=== PATIENT | female | born 1980 | race Caucasian/White ===

== ENCOUNTER 2016-06-28 17:43 | Emergency (ER) | payer SELFPAY ==
[2016-06-28] MEDS ORDERED: Rocephin 1000 MG INJ IM ONE (18:44)
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
[2016-06-28] MEDS ORDERED: Rocephin 1000 MG INJ ONE (19:08)
[2016-06-28] MEDS ORDERED: XYLOCAINE 1% HCL 20 ML MDV ONE (19:08)
[2016-06-28 19:38] VITALS: BP 105/72; PULSE 83; O2SAT 100
== END 2016-06-28 19:25 | disposition home or self-care (01) ==
LOC: ED 17:43
DX: K08.89 Other specified disorders of teeth and supporting structures (principal); K04.7 Periapical abscess without sinus; K02.9 Dental caries, unspecified
CPT/HCPCS: 96372; 99282; 99284; J0696

== ENCOUNTER 2017-05-12 08:30 | Emergency (ER) | payer OTHER ==
--- NOTE | 2017-05-12 09:09 | ERPHSYRPT ---
- History of Present Illness Time Seen by Provider: 05/12/17 08:54 Source: patient, family Patient Subjective Stated Complaint: PT REPORTS REDNESS DRAIANGE ET MATTING OF LEFT EYE BEGINNING CHONG 1 WK AGO WORSENING WITH TIME-DENIES INJURY-DENIES PAIN Triage Nursing Assessment: PT PINK WARM DRY ANXIOUS-REDNESS NOTED TO LEFT EYE- PT DNIES VISUAL CHANGES Physician History: CC: left eye drainage Hx: 36 y/o patient of Dr Corbett with one week left eye redness now with copious green drainage from the left eye. No FB or injury. No blurred vision. Recent cold symptoms. No glasses or contact lenses. Drng is worse so came to ER. Location: left eye Severity: moderate Allergies/Adverse Reactions: nabumetone [From Relafen] Allergy (Mild, Verified 05/12/17 08:51) CAUSES BLURED VISION PER PATIENT Hx Tetanus, Diphtheria Vaccination/Date Given: Yes (2014) Hx Influenza Vaccination/Date Given: No Hx Pneumococcal Vaccination/Date Given: No Immunizations Up to Date: Yes - Review of Systems Constitutional: No Fever, No Chills Eyes: Discharge, Eye Redness, No Eye Pain, No Vision Changes Ears, Nose, & Throat: Nose Congestion - Past Medical History Pertinent Past Medical History: Yes Neurological History: No Pertinent History ENT History: No Pertinent History Cardiac History: No Pertinent History Respiratory History: No Pertinent History Endocrine Medical History: No Pertinent History Musculoskeletal History: No Pertinent History GI Medical History: No Pertinent History History: No Pertinent History Psycho-Social History: Anxiety, Bipolar, Depression Female Reproductive Disorders: No Pertinent History - Past Surgical History Past Surgical History: Yes Neuro Surgical History: No Pertinent History Cardiac: No Pertinent History Respiratory: No Pertinent History Gastrointestinal: Cholecystectomy Musculoskeletal: Orthopedic Surgery Female Surgical History: Tubal Ligation Other Surgical History: ANKLE TENDON RECONSTRUCTION AT AGE 14. PY CYST - Social History Smoking Status: Current every day smoker How long have you smoked: 15 YEARS Exposure to second hand smoke: Yes Drug Use: none Patient Lives Alone: No - Female History Hx Last Menstrual Period: 2 WKS AGO Hx Now: No - Nursing Vital Signs Nursing Vital Signs: Initial Vital Signs Temperature 98.9 F 05/12/17 08:44 Pulse Rate 85 05/12/17 08:44 Respiratory Rate 20 05/12/17 08:44 Blood Pressure 121/84 05/12/17 08:44 O2 Sat by Pulse Oximetry 96 01/07/18 08:44 Pain Scale Pain Intensity 0 - Physical Exam General Appearance: alert Vision Acuity Degree Evaluation Phase: Uncorrected Vision Acuity Right Eye: 20/30 Vision Acuity Left Eye: 20/30 Eye Exam: left eye: conjunctival inflammation, exudate, bilateral eye: PERRL, EOMI Ears, Nose, Throat Exam: normal ENT inspection, moist mucous membranes Neck Exam: normal inspection, non-tender, supple Respiratory Exam: normal breath sounds Cardiovascular Exam: regular rate/rhythm Skin Exam: normal color, warm, dry SpO2 Interpretation: normal SpO2: 96 Oxygen Delivery: Room Air Comments: left eye has conjunctival injection and mild drng. EOMI. No FB noted. No lid edema or periorbital cellulitis. - Course Nursing assessment & vital signs reviewed: Yes - Progress Progress Note: 05/12/17 09:03 Instr given. She plans to follow up tomorrow at [facility]. Counseled pt/family regarding: diagnosis, need for follow-up - Departure Time of Disposition: 09:03 Departure Disposition: Home Clinical Impression: Conjunctivitis, left eye Qualifiers: Conjunctivitis type: acute Acute conjunctivitis type: bacterial Qualified Code( s): H10.32 - Unspecified acute conjunctivitis, left eye Condition: Stable Critical Care Time: No Referrals: TERE CORBETT MD [Primary Care Provider] - Instructions: Conjunctivitis Additional Instructions: EYE PROBLEM 1. If a patch is applied, your vision will be impaired. Do not drive. 2. The more you rest your good eye, the better your affected eye will feel. 3. Use any eye drops or ointments as prescribed by the emergency room physician. 4. See your family physician or return to the emergency department for any increasing pain or decreased vision. 5. Use good hygiene and keep eye clean. 6. Do not rub the eye. Rx cipro eye drops to [facility]. Followup tomorrow at [facility]. Warm compresses to left eye 4 times a day. Prescriptions: Ciprofloxacin 0.3% Ophth [Ciloxan OPHTH] 1 drops OP QID #1 bottle
[2017-05-12 09:23] VITALS: BP 130/87; PULSE 81; O2SAT 99
== END 2017-05-12 09:21 | disposition home or self-care (01) ==
LOC: ED 08:30
DX: H10.32 Unspecified acute conjunctivitis, left eye (principal)
CPT/HCPCS: 99281

== ENCOUNTER 2018-07-22 16:10 | Emergency (ER) | payer MEDICAID, OTHER ==
[2018-07-22 16:28] VITALS: BP 119/69; PULSE 78; O2SAT 100
[2018-07-22] MEDS ORDERED: XYLOCAINE 1% HCL 20 ML MDV IJ ONE (16:54)
[2018-07-22] MEDS ORDERED: XYLOCAINE 1% HCL 20 ML MDV ONE (17:00)
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
[2018-07-22] MEDS ORDERED: KEFLEX 500 MG PO ONE (17:25)
[2018-07-22] MEDS ORDERED: KEFLEX 500 MG ONE (17:26)
== END 2018-07-22 17:40 | disposition home or self-care (01) ==
LOC: ED 16:10
DX: S00.83XA Contusion of other part of head, initial encounter (principal); S01.511A Laceration without foreign body of lip, initial encounter; Y04.0XXA Assault by unarmed brawl or fight, initial encounter; F41.9 Anxiety disorder, unspecified; F31.9 Bipolar disorder, unspecified
CPT/HCPCS: 12011; 96372; 99283; A9270-GY

== ENCOUNTER 2018-11-29 00:34 | Emergency (ER) | payer SELFPAY ==
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
[2018-11-29 01:08] VITALS: BP 110/77; PULSE 93; O2SAT 98
== END 2018-11-29 00:55 | disposition home or self-care (01) ==
LOC: ED 00:34
DX: F19.90 Other psychoactive substance use, unspecified, uncomplicated (principal)
CPT/HCPCS: 99283

== ENCOUNTER 2019-05-30 18:09 | Emergency (ER) | payer OTHER ==
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
[2019-05-30] MEDS ORDERED: TORAdol 30 mg Injection IM ONE (18:38)
[2019-05-30] MEDS ORDERED: Rocephin 1000 MG INJ IM ONE (18:38)
[2019-05-30] MEDS ORDERED: TORAdol 30 mg Injection ONE (18:41)
[2019-05-30] MEDS ORDERED: Rocephin 1000 MG INJ ONE (18:41)
[2019-05-30 19:21] VITALS: BP 129/89; PULSE 72; O2SAT 99
== END 2019-05-30 19:21 | disposition home or self-care (01) ==
LOC: ED 18:09
DX: K08.89 Other specified disorders of teeth and supporting structures (principal); K04.7 Periapical abscess without sinus
CPT/HCPCS: 96372; 99284; J0696; J1885

== ENCOUNTER 2019-07-07 05:55 | Day surgery (SDC) | payer OTHER ==
[2019-07-07] MEDS ORDERED: Lactated Ringers 1,000 ML IV SCH (06:00)
[2019-07-07] MEDS ORDERED: SUBLIMAZE 100 MCG/2 ML ONE (07:41)
[2019-07-07] MEDS ORDERED: DIPRIVAN 200 MG/20 ML IV ONE (07:41)
[2019-07-07] MEDS ORDERED: Versed 2 MG/2 ML Injection ONE (07:41)
[2019-07-07] MEDS ORDERED: Zofran 4 MG/2 ML VIAL ONE (07:41)
[2019-07-07] MEDS ORDERED: Decadron 4 MG INJ ONE (07:41)
[2019-07-07] MEDS ORDERED: XYLOCAINE 1% HCL 20 ML MDV ONE (07:58)
[2019-07-07 09:26] VITALS: O2SAT 97
[2019-07-07 09:27] VITALS: BP 112/70; PULSE 69
--- NOTE | 2019-07-08 08:08 | OP ---
SURGERY DATE/TIME: 07/07/2019 0750 PREOPERATIVE DIAGNOSIS: Severe cervical dysplasia. POSTOPERATIVE DIAGNOSIS: Severe cervical dysplasia. PROCEDURE: Colposcopically-directed LEEP procedure and excision of right vulvar skin tag. SURGEON: Riaz Young D.O. TECHNICAL SUPPORT ASSISTANT: Melyssa Villanueva, surgical coordinator. ANESTHESIA: General. ESTIMATED BLOOD LOSS: Minimal. COMPLICATIONS: None. INDICATIONS: The risks, benefits, indications and alternatives of the procedure were reviewed with the patient prior to procedure. The patient understood the risk of infection, bleeding, bowel injury, bladder injury, ureteral injury, uterine perforation, incompetent cervix, anorgasmia, decreased libido that can be associated with the surgery and desires to have this surgery as a possible means to alleviate her current medical condition. DESCRIPTION OF PROCEDURE AND FINDINGS: At this point the patient is taken to the operating room, given general sedation, placed in dorsal lithotomy position. Prepped and draped in the usual sterile fashion. A coated speculum is then placed into the patient's vagina and the cervix is then injected circumferentially with 1% lidocaine. Under colposcopic guidance a loop instrument was then used to excise the ectocervical portion and was done so with a right to left motion retrieving and excising the ectocervical tissue. Another excision was made excising the endocervical tissue with right to left motion and was done so without complication. A loop javascript developer ball was subsequently used to coagulate the surface of the cervix and was done so without complication. Monsel solution was placed on the surface of the cervix at the completion of the procedure. From this point all instruments were then removed from the patient's vaginal region and at this point a right approximately 1 cm skin tag was located on the right vulva and cautery was used to excise the skin tag from the right vulvar region and the base of it was coagulated and was done so without complication. From this point, the patient was then taken out of the dorsal lithotomy position, was taken out of anesthesia and was then taken to the recovery room in stable condition. All instruments and laps were accounted for x2.
== END 2019-07-07 09:39 | disposition home or self-care (01) ==
LOC: SDC 05:55
PROVIDERS: ATTEND Obstetrics & Gynecology
DX: D06.9 Carcinoma in situ of cervix, unspecified (principal); N84.3 Polyp of vulva; N90.89 Other specified noninflammatory disorders of vulva and perineum
CPT/HCPCS: 11200; 57460; 84703; 88305; J1100; J2250; J2405; J2704; J3010

== ENCOUNTER 2019-12-29 20:27 | Emergency (ER) | payer OTHER ==
[2019-12-29] MEDS ORDERED: DUONEB 0.5-3 MG/3 ml Neb IH ONE ×2 (21:44→21:53)
[2019-12-29] MEDS ORDERED: solu-MEDROL 125 MG IV ONE (21:44)
[2019-12-29] MEDS ORDERED: solu-MEDROL 125 MG ONE (21:47)
[2019-12-29 21:49] LABS: Absolute Neutrophil Ct (ANC) 6.38 (1.4-6.9); BASOPHIL % 0.6 % (0.0-0.4); Basophil (Absolute #) 0.06 (0-0.4); Eosinophil % 4.1 % (0.00-5.0); Eosinophil (Absolute #) 0.41 (0-0.5); Hematocrit 36.9 % (35-47); Hemoglobin 12.1 gm/dl (12.0-16.0); Lymphocyte (Absolute #) 2.36 (1.0-4.6); Lymphocytes % 23.5 % (24.0-44.0); Mean Cell Volume 98.9 fl (78-100); Mean Corpuscular Hemoglobin 32.4 pg (26-32); Mean Corpuscular Hgb Concent. 32.8 g/dl (32-36); Mean Platelet Volume 9.7 fl (7.5-11.0); Monocyte (Absolute #) 0.85 (0.0-1.3); Monocytes % 8.4 % (0.0-12.0); Neutrophil % 63.4 % (36.0-66.0); Platelet Count 330 K/mm3 (150-450); Red Blood Count 3.73 M/mm3 (4.1-5.4); Red Cell Distribution Width 12.5 % (11.5-14.0); White Blood Count 10.1 K/mm3 (4.0-10.5)
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
[2019-12-29 21:54] LABS: ALBUMIN 3.9 g/dL (3.5-5.0); ALKALINE PHOSPHATASE 82 U/L (38-126); ANION GAP 11.8 MEQ/L (5-15); BLOOD UREA NITROGEN 10 mg/dL (7-17); CHLORIDE 103 mmol/L (98-107); Calcium 9.1 mg/dL (8.4-10.2); Carbon Dioxide 26 mmol/L (22-30); Creatinine 1 0.73 mg/dL (0.52-1.04); EST GLOMERULAR FILTRATION RATE > 60.0 ML/MIN; Glucose 94 mg/dL (74-106); MAGNESIUM 1.7 mg/dL (1.6-2.3); SGOT/AST 19 U/L (14-36); SGPT/ALT 13 U/L (0-35); SODIUM 137 mmol/L (137-145); Total Protein 6.8 g/dL (6.3-8.2)
[2019-12-29 22:33] LABS: INFLUENZA A NEGATIVE (NEGATIVE); INFLUENZA B NEGATIVE (NEGATIVE); RESPIRATORY SYNCTIAL VIRUS NEGATIVE (Negative)
[2019-12-30 00:33] VITALS: BP 124/83; PULSE 84; O2SAT 98
--- NOTE | 2019-12-30 09:05 | XRAY ---
Indication: Fever and cough. Suspect Covid 19. Comparison: November 14, 2014. Portable chest again demonstrates normal heart, lungs, and bony thorax with a few incidental tiny calcified granulomas.
== END 2019-12-30 00:34 | disposition home or self-care (01) ==
LOC: ED 20:27
DX: J40 Bronchitis, not specified as acute or chronic (principal); R05 Cough
CPT/HCPCS: 36000; 36415; 71045; 80053; 83735; 84484; 85025; 85379; 87040; 87631; 93041; 94640; 94760; 96374; 99284; J2930; A9270-GY